=== PATIENT | male | born 1945 | race African-American/Black ===

== ENCOUNTER → 2018-12-05 | Day surgery (SDC) | payer OTHER ==
[~2018-12-05] MED LIST: ACET-575 PO; AMLO10TA8 PO; CARV25TA2 PO; GLIP5TAB10 PO; HYDR-2145 PO; IV RINGERS SOLUTION,LACTATED 1,000 ML IV SCH; LISI40TA PO; METF500T16 PO; OMEG-33 PO; ONDANSETRON PF 4 MG/2 ML VIAL. IV PRN; POTA20TA4 PO; PROPOFOL 10,000 MCG/ML (20ML) VIAL IV ONE; PROPOFOL 40 ML IV ONE
[2018-12-05 14:25] VITALS: BP 125/79
--- NOTE | 2018-12-09 14:07 | PATHOLOGY ---
[facility] Accession Number: [id number] . 01 Material submitted: . colon - DESCENDING COLON POLYP BX. Modifiers: descending . 01 Clinical history: . Screening . 02 Diagnosis: Colonic mucosa "descending colon polyp biopsy": - Tubular adenoma. - There is no evidence of high-grade dysplasia or malignancy. (SHA:joshua; 12/09/2018) QMS 12/09/2018 1157 Local . 02 Electronically signed: . Barney Juarez MD, Pathologist NPI- [id number] . 01 Gross description: . Received in formalin labeled "Hermon, descending colon," and additionally labeled on the requisition as "polyp BX," and additionally verified via the problem specimen form as "Weakly Sr," is a single segment of rg soft tissue measuring 0.4 cm in maximum dimension. The specimen is entirely submitted in cassette A1. (TSD; 12/08/2018) TOB/TOB 12/08/2018 1851 Local . 02 Pathologist provided ICD-10: D12.4, Z12.11 . 02 CPT . 857190 Specimen Comment: A courtesy copy of this report has been sent to Specimen Comment: [phone], . Specimen Comment: Report sent to / DR JUSTICE Performed at: 01 [facility] [address], [place], [place] [id number] MD Rocael Miguel MD Phone: [phone] Performed at: 02 [facility] [address] [place], [place] [id number] MD Shaq Orantes MD Phone: [phone]
== END ==
LOC: SURG 11:02
PROVIDERS: ATTEND Internal Medicine Gastroenterology
DX: Z09 Encounter for follow-up examination after completed treatment for conditions other than malignant neoplasm (principal); D12.4 Benign neoplasm of descending colon; E11.9 Type 2 diabetes mellitus without complications; I10 Essential (primary) hypertension; Z87.39 Personal history of other diseases of the musculoskeletal system and connective tissue; Z86.010 Personal history of colon polyps; Z79.84 Long term (current) use of oral hypoglycemic drugs
CPT/HCPCS: 45380; 82947; 88305; J2704; J7120